=== PATIENT | male | born 1995 | race Caucasian/White ===

== ENCOUNTER 2018-03-28 15:28 | Emergency (ER) | payer BC ==
[~2018-03-28] VITALS: Ht 175.3 cm; Wt 60.2 kg
[2018-03-28 15:45] VITALS: BP 105/64
[2018-03-28 16:51] LABS: BASOPHILS % (AUTO) 0.1 % (0-1); EOSINOPHILS # (AUTO) 0.2 X10'3 (0-0.9); EOSINOPHILS % (AUTO) 4.6 % (0-6); HEMATOCRIT 39.8 % (42.0-52.0); HEMOGLOBIN 13.5 g/dl (14.0-17.9); LYMPHOCYTES # (AUTO) 0.3 X10'3 (1.1-4.8); LYMPHOCYTES % (AUTO) 5.9 % (21-51); MEAN CORPUSCULAR HEMOGLOBIN 30.2 PG (27.0-31.0); MEAN CORPUSCULAR HGB CONC 33.8 % (33.0-36.5); MEAN CORPUSCULAR VOLUME 89.3 FL (78-98); MEAN PLATELET VOLUME 8.1 FL (7.4-10.4); MONOCYTES # (AUTO) 0.3 X10'3 (0-0.9); MONOCYTES % (AUTO) 6.5 % (2-12); NEUTROPHILS # (AUTO) 3.8 X10'3 (1.8-7.7); NEUTROPHILS % (AUTO) 82.9 % (42-75); PLATELET COUNT 196 X10'3 (140-440); RED BLOOD COUNT 4.46 X10'6 (4.70-6.10); RED CELL DISTRIBUTION WIDTH 13.8 % (11.5-14.5); WHITE BLOOD COUNT 4.6 X10'3 (4.5-11.0)
[2018-03-28 17:13] LABS: ALANINE AMINOTRANSFERASE 26 U/L (12-78); ALBUMIN/GLOBULIN RATIO 1.6 (1.1-1.5); ALKALINE PHOSPHATASE 91 IU/L (46-116); ANION GAP 6 (8-16); ASPARTATE AMINO TRANSFERASE 17 U/L (10-37); BILIRUBIN,TOTAL 0.3 MG/DL (0.1-1.0); BLOOD UREA NITROGEN 13 MG/DL (7-18); CALCIUM 8.6 MG/DL (8.5-10.1); CHLORIDE 102 MMOL/L (99-107); CREATININE 0.93 MG/DL (0.60-1.10); GLUCOSE 84 MG/DL (70-104); POTASSIUM 3.7 MMOL/L (3.5-5.1); SODIUM 139 MMOL/L (135-145); TOTAL CARBON DIOXIDE 30.8 MMOL/L (24-32); TOTAL PROTEIN 6.5 G/DL (6.4-8.2); eGFR > 90 ML/MIN
[2018-03-28] MEDS ORDERED: PRED10TA PO (17:46)
[2018-03-28] MEDS ORDERED: CLIN300C85 PO (17:47)
== END 2018-03-28 18:05 | disposition home or self-care (01) ==
LOC: ER 15:29
DX: R21 Rash and other nonspecific skin eruption (principal); L02.01 Cutaneous abscess of face; R42 Dizziness and giddiness; Z86.14 Personal history of Methicillin resistant Staphylococcus aureus infection
CPT/HCPCS: 36415; 71045; 80053; 83605; 85025; 87040; 87081; 87880; 99285

== ENCOUNTER 2022-12-20 00:08 | Emergency (ER) | payer BC ==
[~2022-12-20] VITALS: Ht 177.8 cm; Wt 61.4 kg
[~2022-12-20 00:08] MED LIST: CLIN-97 PO; PRED10TA PO
[2022-12-20] MEDS ORDERED: orphenadrine citrate 60mg/2ml inj. IM ONE (04:40)
[2022-12-20] MEDS ORDERED: acetaminophen 325mg tablet PO ONE (04:40)
[2022-12-20] MEDS ORDERED: HYDROcodone/acetaminophen 10/325mg tab PO ONE (04:40)
[2022-12-20] MEDS ORDERED: ketorolac trometh inj. 60 MG/2 ML VIAL IM ONE (04:40)
[2022-12-20] MEDS ORDERED: CYCL-1 PO (04:46)
[2022-12-20] MEDS ORDERED: HYDR-3973 PO (04:46)
[2022-12-20 04:58] VITALS: BP 103/63; PULSE 98; RESP 16; TEMP 98.8; O2SAT 99
== END 2022-12-20 05:00 | disposition home or self-care (01) ==
LOC: ER 00:09
DX: M54.9 Dorsalgia, unspecified (principal); R19.7 Diarrhea, unspecified; Z86.14 Personal history of Methicillin resistant Staphylococcus aureus infection; Z88.0 Allergy status to penicillin; Z88.2 Allergy status to sulfonamides
CPT/HCPCS: 96372; 99284; J1885; J2360

== ENCOUNTER 2023-01-22 08:17 | Inpatient (IN) | payer BC ==
[~2023-01-22] VITALS: Ht 177.8 cm; Wt 65.0 kg
[2023-01-22] VITALS (9 sets, daily range): BP systolic 102–110; BP diastolic 54–65; PULSE 100–114; RESP 15–22; TEMP 99–103; O2SAT 96–98
[~2023-01-22 08:17] MED LIST changes: +CYCL-1 PO
[2023-01-22 09:19] LABS: LYMPHOCYTES # (AUTO) 0.1 X10'3 (1.1-4.8); MONOCYTES # (AUTO) 0.3 X10'3 (0-0.9); NEUTROPHILS # (AUTO) 0.7 X10'3 (1.8-7.7); WHITE BLOOD COUNT 1.1 X10'3 (4.5-11.0)
[2023-01-22 09:21] LABS: BASOPHILS % (AUTO) 0 % (0-1); EOSINOPHILS % (AUTO) 0.5 % (0-6); LYMPHOCYTES % (AUTO) 8.8 % (21-51); MEAN CORPUSCULAR HEMOGLOBIN 25.6 PG (27.0-31.0); MEAN CORPUSCULAR HGB CONC 32.1 g/dL (33.0-36.5); MEAN CORPUSCULAR VOLUME 79.9 FL (78-98); MEAN PLATELET VOLUME 8.3 FL (7.4-10.4); MONOCYTES % (AUTO) 30.2 % (2-12); NEUTROPHILS % (AUTO) 60.5 % (42-75); PLATELET COUNT 193 X10'3 (140-440); RED BLOOD COUNT 1.94 X10'6 (4.70-6.10); RED CELL DISTRIBUTION WIDTH 20.2 % (11.5-14.5)
[2023-01-22 09:25] LABS: HEMATOCRIT 15.5 % (42.0-52.0)
[2023-01-22 09:26] LABS: INR 1.3 INR
[2023-01-22 10:21] LABS: ALANINE AMINOTRANSFERASE 44 U/L (12-78); ALBUMIN/GLOBULIN RATIO 0.6 (1.1-1.5); ALKALINE PHOSPHATASE 376 IU/L (46-116); AMYLASE 19 U/L (25-115); ANION GAP 8 (8-16); ASPARTATE AMINO TRANSFERASE 23 U/L (10-37); BILIRUBIN,TOTAL 0.4 MG/DL (0.1-1.0); BLOOD UREA NITROGEN 9 MG/DL (7-18); BUN/CREATININE RATIO 13.2 (10.0-20.0); CALCIUM 9.1 MG/DL (8.5-10.1); CHLORIDE 101 MMOL/L (99-107); CREATININE 0.68 MG/DL (0.60-1.10); GLUCOSE 110 MG/DL (70-104); LIPASE < 50 U/L (73-393); POTASSIUM 3.9 MMOL/L (3.5-5.1); SODIUM 136 MMOL/L (135-145); TOTAL CARBON DIOXIDE 26.9 MMOL/L (24-32); TOTAL PROTEIN 5.2 G/DL (6.4-8.2); eCRCL 149 ML/MIN; eGFR > 90 ML/MIN
[2023-01-22 10:36] LABS: TOTAL CELLS COUNTED 100
[2023-01-22 10:41] LABS: ANISOCYTOSIS 3+; MICROCYTOSIS 1+; PLATELET ESTIMATE NORMAL; TEAR DROP CELLS 2+
[2023-01-22 10:54] LABS: ELLIPTOCYTES FEW; POLYCHROMASIA FEW
[2023-01-22 10:55] LABS: HYPOCHROMASIA 1+
[2023-01-22] MEDS ORDERED: magnesium hydroxide 30ml (MOM) UD suspension PO PRN (10:55)
[2023-01-22] MEDS ORDERED: acetaminophen 325mg tablet PO PRN ×2 (10:55→11:25)
[2023-01-22] MEDS ORDERED: ondansetron/PF 4mg/2ml inj IV PRN ×2 (10:55→11:25)
[2023-01-22] MEDS ORDERED: magnesium 2GM in 50ml NS 50 ML IV PRN ×2 (10:55→11:25)
[2023-01-22] MEDS ORDERED: mag hydrox/Alum hydrox/simeth 30ml oral suspension PO PRN (10:55)
[2023-01-22] MEDS ORDERED: HYDROmorphone/PF 0.2 MG/ML SYRINGE IV PRN (10:55)
[2023-01-22] MEDS ORDERED: potassium Cl 40MEQ/1/2NS 520ml 520 ML IV PRN ×2 (10:55→11:25)
[2023-01-22] MEDS: normal saline 1000ml 1,000 ML IV SCH ×4 (10:55→21:25)
[2023-01-22] MEDS ORDERED: magnesium 4gm in 100ml NS 100 ML IV PRN ×2 (10:55→11:25)
[2023-01-22] MEDS ORDERED: morphine 2 MG/ML inj. syringe IV PRN ×2 (10:55→11:25)
[2023-01-22] MEDS ORDERED: magnesium Cl slow-release 64mg tablet PO PRN ×2 (10:55→11:25)
[2023-01-22] MEDS ORDERED: potassium Cl 20 mEq SR tablet PO PRN ×4 (10:55→11:25)
[2023-01-22 11:17] LABS: BILIRUBIN,URINE NEGATIVE (Neg); CLARITY,URINE CLEAR (Clear); COLOR,URINE YELLOW (Yellow); GLUCOSE, URINE NEGATIVE (Neg); KETONES,URINE NEGATIVE (Neg); LEUKOCYTE ESTERASE ,URINE NEGATIVE (Neg); NITRITES, URINE NEGATIVE (Neg); OCCULT BLOOD,URINE NEGATIVE (Neg); PROTEIN,URINE NEGATIVE (Neg); UROBILINOGEN,URINE 0.2 E.U/dL (0.2-1.0)
[2023-01-22 11:20] LABS: UA COLLECTION TYPE CLN CATCH MIDSTREAM
[2023-01-22] MEDS ORDERED: HYDROcodone/acetaminophen 5mg/325mg tablet PO PRN (11:25)
--- NOTE | 2023-01-22 11:25 | NUR ---
dr. gómez at bedside, told her only 1 unit of blood ordered by dr. lobo. She said she would order another unit. She wanted a urine tox ordered.
[2023-01-22] MEDS ORDERED: NO HOME MEDS (12:05)
[2023-01-22 13:03] LABS: URINE AMPHETAMINE SCREEN NEGATIVE (Neg); URINE BARBITUATE SCREEN NEGATIVE (Neg); URINE BENZODIAZEPINES SCREEN NEGATIVE (Neg); URINE CANNABINOID SCREEN POSITIVE (Neg); URINE COCAINE SCREEN NEGATIVE (Neg); URINE METHADONE SCREEN NEGATIVE (Neg); URINE OPIATE SCREEN NEGATIVE (Neg); URINE PHENCYCLIDINE SCREEN NEGATIVE (Neg)
[2023-01-22 13:17] LABS: OCCULT BLOOD STOOL POSITIVE (Neg)
[2023-01-22] MEDS ORDERED: FERR325T29 PO (13:21)
[2023-01-22] MEDS ORDERED: ASCO500C12 PO (13:21)
[2023-01-22] MEDS ORDERED: CALC-855 PO (13:21)
--- NOTE | 2023-01-22 13:25 | NUR ---
Reported to Dr. Crawford pts temp 101.1 during blood transfusion. Pt is without any other transfusion reaction sxs and has been having fevers for quite a while now. Pt to receive prn tylenol PO dose now and to continue transfusion. Transfusion to be discontinued if pt developes rash, flank pain or associated sxs with transfusiona and to receive IV benadryl.
[2023-01-22 15:14] LABS: % IRON SATURATION 16 % (11-46); IRON 22 UG/DL (53-167); TOTAL IRON BINDING CAPACITY 139 UG/DL (259-388)
[2023-01-22] MEDS: acetaminophen 325mg tablet PO SCH (16:00)
[2023-01-22] MEDS: pantoprazole 40MG/NS 100ML BAG 100 ML IV SCH ×2 (17:15→21:16)
[2023-01-22 18:24] LABS: HIV ANTIBODY 1&2 RAPID NON-REACTIVE (Neg)
--- NOTE | 2023-01-22 19:34 | NUR ---
report given to floor nursr. pt tx to room 4021b by tech
--- NOTE | 2023-01-22 19:41 | NUR ---
Patient arrived from ER and transferred to hospital bed w/o problem
[2023-01-22] MEDS: K and/or MAG REPLACEMENT MC SCH (20:00)
[2023-01-22] MEDS: docusate sod 100mg capsule PO SCH (20:52)
[2023-01-23] VITALS (11 sets, daily range): BP systolic 90–118; BP diastolic 48–63; PULSE 94–106; RESP 14–18; TEMP 97.9–100.8; O2SAT 96–100
[2023-01-23] MEDS: pantoprazole 40MG/NS 100ML BAG 100 ML IV SCH ×5 (01:11→21:54)
[2023-01-23] MEDS: normal saline 1000ml 1,000 ML IV SCH ×5 (05:09→22:58)
--- NOTE | 2023-01-23 06:07 | NUR ---
Problems reprioritized. Patient report given, questions answered & plan of care reviewed with ILYA Luther.
--- NOTE | 2023-01-23 06:12 | NUR ---
Problems reprioritized. Patient report given, questions answered & plan of care reviewed with ILYA Luther.
[2023-01-23 06:41] LABS: HEMOGLOBIN 7.3 g/dl (14.0-17.9); WHITE BLOOD COUNT 1.4 X10'3 (4.5-11.0)
[2023-01-23 06:43] LABS: HEMATOCRIT 22.1 % (42.0-52.0); MEAN CORPUSCULAR HEMOGLOBIN 26.7 PG (27.0-31.0); MEAN CORPUSCULAR HGB CONC 32.9 g/dL (33.0-36.5); PLATELET COUNT 199 X10'3 (140-440); RED BLOOD COUNT 2.72 X10'6 (4.70-6.10); RED CELL DISTRIBUTION WIDTH 18.3 % (11.5-14.5)
[2023-01-23] MEDS: acetaminophen 325mg tablet PO SCH ×4 (07:47→23:40)
[2023-01-23] MEDS: docusate sod 100mg capsule PO SCH ×2 (07:47→20:00)
[2023-01-23] MEDS: K and/or MAG REPLACEMENT MC SCH ×2 (08:00→20:00)
[2023-01-23 08:13] LABS: ANISOCYTOSIS 2+; LARGE PLATELETS FEW; PLATELET ESTIMATE NORMAL; TOTAL CELLS COUNTED 100
[2023-01-23 08:14] LABS: ELLIPTOCYTES 1+; HYPOCHROMASIA 1+; POLYCHROMASIA FEW; TEAR DROP CELLS 2+
[2023-01-23 08:15] LABS: MICROCYTOSIS 1+
[2023-01-23 08:22] LABS: ALANINE AMINOTRANSFERASE 50 U/L (12-78); ALBUMIN 1.8 G/DL (3.4-5.0); ALBUMIN/GLOBULIN RATIO 0.6 (1.1-1.5); ALKALINE PHOSPHATASE 467 IU/L (46-116); ANION GAP 8 (8-16); ASPARTATE AMINO TRANSFERASE 26 U/L (10-37); BILIRUBIN,TOTAL 0.8 MG/DL (0.1-1.0); BLOOD UREA NITROGEN 12 MG/DL (7-18); BUN/CREATININE RATIO 17.1 (10.0-20.0); CALCIUM 9.1 MG/DL (8.5-10.1); CHLORIDE 103 MMOL/L (99-107); GLUCOSE 109 MG/DL (70-104); MAGNESIUM 1.7 MG/DL (1.5-2.4); POTASSIUM 3.9 MMOL/L (3.5-5.1); SODIUM 138 MMOL/L (135-145); TOTAL CARBON DIOXIDE 26.6 MMOL/L (24-32); eCRCL 144 ML/MIN; eGFR > 90 ML/MIN
[2023-01-23] MEDS ORDERED: MIDAZolam 1 MG/ML 5ML VIAL ONE (13:48)
[2023-01-23] MEDS ORDERED: fentaNYL/PF 50MCG/1 ML 2ML syringe ONE (13:48)
[2023-01-23] MEDS ORDERED: LIDOcaine Viscous 15ml cup ONE (13:48)
[2023-01-23] MEDS ORDERED: PEG 3350/Na sulf,bicarb,Cl/KCl oral sol 4 liter bottle PO ONE (14:55)
[2023-01-23] MEDS ORDERED: iohexol 300mg/ml 100ml inj. ONE (15:48)
--- NOTE | 2023-01-23 18:00 | NUR ---
I have reviewed and agree with interventions, assessments, and documentation by Homa Aleman LVN.
--- NOTE | 2023-01-23 20:00 | NUR ---
Agree with Physical assessment done by Frank salinas Lvn.
--- NOTE | 2023-01-23 23:39 | NUR ---
Student documentation: I have reviewed and agree with all interventions, assessments performed and documented by Frank Mendez [facility].
[2023-01-24] VITALS (19 sets, daily range): BP systolic 100–124; BP diastolic 51–72; PULSE 93–113; RESP 14–18; TEMP 97.9–100.3; O2SAT 95–100
[2023-01-24] MEDS: pantoprazole 40MG/NS 100ML BAG 100 ML IV SCH ×5 (02:33→21:07)
[2023-01-24] MEDS: normal saline 1000ml 1,000 ML IV SCH ×5 (03:25→23:25)
--- NOTE | 2023-01-24 06:24 | NUR ---
Problems reprioritized. Patient report given, questions answered & plan of care reviewed with Homa DEL TORO.
[2023-01-24 07:06] LABS: BASOPHILS % (AUTO) 0.2 % (0-1); HEMATOCRIT 22.1 % (42.0-52.0); LYMPHOCYTES # (AUTO) 0.1 X10'3 (1.1-4.8); MEAN CORPUSCULAR HEMOGLOBIN 26.4 PG (27.0-31.0); MEAN PLATELET VOLUME 7.8 FL (7.4-10.4); PLATELET COUNT 206 X10'3 (140-440); WHITE BLOOD COUNT 1.3 X10'3 (4.5-11.0)
[2023-01-24 07:07] LABS: EOSINOPHILS % (AUTO) 0.2 % (0-6); HEMOGLOBIN 7.1 g/dl (14.0-17.9); LYMPHOCYTES % (AUTO) 4.1 % (21-51); MEAN CORPUSCULAR HGB CONC 32.3 g/dL (33.0-36.5); MEAN CORPUSCULAR VOLUME 81.9 FL (78-98); MONOCYTES # (AUTO) 0.4 X10'3 (0-0.9); MONOCYTES % (AUTO) 29.2 % (2-12); NEUTROPHILS # (AUTO) 0.8 X10'3 (1.8-7.7); NEUTROPHILS % (AUTO) 66.3 % (42-75); RED CELL DISTRIBUTION WIDTH 18.5 % (11.5-14.5)
[2023-01-24 07:19] LABS: ALANINE AMINOTRANSFERASE 33 U/L (12-78); ALBUMIN 1.8 G/DL (3.4-5.0); ALBUMIN/GLOBULIN RATIO 0.6 (1.1-1.5); ALKALINE PHOSPHATASE 386 IU/L (46-116); ANION GAP 9 (8-16); ASPARTATE AMINO TRANSFERASE 17 U/L (10-37); BILIRUBIN,TOTAL 0.6 MG/DL (0.1-1.0); BLOOD UREA NITROGEN 9 MG/DL (7-18); CALCIUM 8.9 MG/DL (8.5-10.1); CHLORIDE 102 MMOL/L (99-107); CREATININE 0.69 MG/DL (0.60-1.10); GLUCOSE 101 MG/DL (70-104); MAGNESIUM 1.6 MG/DL (1.5-2.4); POTASSIUM 3.6 MMOL/L (3.5-5.1); SODIUM 136 MMOL/L (135-145); TOTAL CARBON DIOXIDE 25.3 MMOL/L (24-32); TOTAL PROTEIN 4.9 G/DL (6.4-8.2); eCRCL 147 ML/MIN; eGFR > 90 ML/MIN
[2023-01-24] MEDS: K and/or MAG REPLACEMENT MC SCH ×2 (07:38→20:00)
[2023-01-24] MEDS: acetaminophen 325mg tablet PO SCH ×3 (07:39→23:53)
[2023-01-24] MEDS: docusate sod 100mg capsule PO SCH ×3 (07:39→20:39)
[2023-01-24] MEDS: ferrous sulfate 325mg tablet PO SCH (07:39)
[2023-01-24 08:31] LABS: LACTATE DEHYDROGENASE 186 U/L (85-227)
[2023-01-24 10:23] LABS: ANISOCYTOSIS 2+; MICROCYTOSIS FEW; PLATELET ESTIMATE NORMAL; TOTAL CELLS COUNTED 100
[2023-01-24 10:24] LABS: ELLIPTOCYTES 1+; HYPOCHROMASIA 1+; LARGE PLATELETS FEW; POLYCHROMASIA FEW; ROULEAUX 1+; TEAR DROP CELLS 2+
[2023-01-24 11:38] LABS: RED BLOOD COUNT 2.71 X10'6 (4.70-6.10); RETICULOCYTE % (AUTO) 3.1 % (0.5-1.5)
[2023-01-24 12:51] LABS: EBV AB VCA, IGG >600.0 U/mL (0.0-17.9); EBV AB VCA, IGM <36.0 U/mL (0.0-35.9); EBV NUCLEAR ANTIGEN AB, IGG <18.0 U/mL (0.0-17.9)
[2023-01-24] MEDS ORDERED: fentaNYL/PF 50MCG/1 ML 2ML syringe ONE (15:53)
[2023-01-24] MEDS ORDERED: MIDAZolam 1 MG/ML 5ML VIAL ONE (15:53)
--- NOTE | 2023-01-24 18:00 | NUR ---
I have reviewed and agree with interventions, assessments, and documentation by Homa Aleman LVN.
--- NOTE | 2023-01-24 18:02 | NUR ---
Verbal permission to give patients father updates if he calls. Alec Doherty [phone]. Adding to SBAR.
--- NOTE | 2023-01-24 23:33 | NUR ---
Charting by Merry SEAMAN reviewed by Thania Martin RN
[2023-01-25] VITALS (8 sets, daily range): BP systolic 107–128; BP diastolic 60–71; PULSE 106–114; RESP 16–18; TEMP 97.5–99.5; O2SAT 96–100
[2023-01-25] MEDS: pantoprazole 40MG/NS 100ML BAG 100 ML IV SCH ×3 (01:50→10:46)
--- NOTE | 2023-01-25 05:52 | NUR ---
I have reviewed and agree with all assessment performed unless otherwise noted in my assessment, documented by Osmel Trinidad, Addendum: 01/25/23 at 0658 by Pura Sevilla RN I have reviewed and agreed with Osmel TRINIDAD's assessment apart from my findings on my own assessment.
--- NOTE | 2023-01-25 06:31 | NUR ---
Problems reprioritized. Patient report given, questions answered & plan of care reviewed with Conrado DEL TORO.
--- NOTE | 2023-01-25 06:45 | NUR ---
Patient in room ORTHO 4021. I have received report from ALVERTO Bolivar and had the opportunity to ask questions and assume patient care.
[2023-01-25] MEDS: normal saline 1000ml 1,000 ML IV SCH ×4 (06:51→19:44)
--- NOTE | 2023-01-25 07:17 | NUR ---
Patient in room ORTHO 4021. I have received report from Osmel DEL TORO and had the opportunity to ask questions and assume patient care.
[2023-01-25 07:34] LABS: BASOPHILS % (AUTO) 0.1 % (0-1); EOSINOPHILS % (AUTO) 0.2 % (0-6); HEMOGLOBIN 7.4 g/dl (14.0-17.9); LYMPHOCYTES # (AUTO) 0.1 X10'3 (1.1-4.8); LYMPHOCYTES % (AUTO) 8.9 % (21-51); MEAN CORPUSCULAR HEMOGLOBIN 26.5 PG (27.0-31.0); MEAN CORPUSCULAR HGB CONC 32.3 g/dL (33.0-36.5); MEAN PLATELET VOLUME 7.9 FL (7.4-10.4); MONOCYTES # (AUTO) 0.3 X10'3 (0-0.9); NEUTROPHILS # (AUTO) 0.8 X10'3 (1.8-7.7); NEUTROPHILS % (AUTO) 65.8 % (42-75); PLATELET COUNT 231 X10'3 (140-440); RED CELL DISTRIBUTION WIDTH 18.9 % (11.5-14.5); WHITE BLOOD COUNT 1.3 X10'3 (4.5-11.0)
[2023-01-25 07:52] LABS: ALANINE AMINOTRANSFERASE 30 U/L (12-78); ALBUMIN 1.8 G/DL (3.4-5.0); ALBUMIN/GLOBULIN RATIO 0.6 (1.1-1.5); ALKALINE PHOSPHATASE 361 IU/L (46-116); ANION GAP 7 (8-16); ASPARTATE AMINO TRANSFERASE 17 U/L (10-37); BILIRUBIN,TOTAL 0.5 MG/DL (0.1-1.0); BLOOD UREA NITROGEN 9 MG/DL (7-18); BUN/CREATININE RATIO 12.2 (10.0-20.0); CALCIUM 8.9 MG/DL (8.5-10.1); CHLORIDE 102 MMOL/L (99-107); CREATININE 0.74 MG/DL (0.60-1.10); GLUCOSE 130 MG/DL (70-104); MAGNESIUM 1.6 MG/DL (1.5-2.4); POTASSIUM 3.8 MMOL/L (3.5-5.1); SODIUM 137 MMOL/L (135-145); TOTAL CARBON DIOXIDE 28.3 MMOL/L (24-32); TOTAL PROTEIN 4.9 G/DL (6.4-8.2); eCRCL 137 ML/MIN; eGFR > 90 ML/MIN
[2023-01-25] MEDS: K and/or MAG REPLACEMENT MC SCH ×2 (08:00→20:00)
[2023-01-25] MEDS: docusate sod 100mg capsule PO SCH ×2 (08:08→19:49)
[2023-01-25] MEDS: ferrous sulfate 325mg tablet PO SCH (08:09)
[2023-01-25] MEDS: acetaminophen 325mg tablet PO SCH ×2 (08:11→16:19)
[2023-01-25 08:14] LABS: PLATELET ESTIMATE NORMAL; TOTAL CELLS COUNTED 100
[2023-01-25 08:15] LABS: ANISOCYTOSIS 2+; ELLIPTOCYTES FEW; TEAR DROP CELLS 2+
--- NOTE | 2023-01-25 10:43 | NUR ---
Pt has a temp of 101. Contacted resident and told him pt would like tylenol for temp but only wants to take 325mg. Resident stated that was okay.
[2023-01-25] MEDS ORDERED: acetaminophen 325mg tablet PO ONE (11:00)
--- NOTE | 2023-01-25 16:00 | NUR ---
[employer]GER documentation: I have reviewed and agree with all interventions, assessments performed and documented by Conrado Topete LVN.
--- NOTE | 2023-01-25 17:41 | NUR ---
Student documentation: I have reviewed and agree with all interventions, assessments performed and documented by KWADWO DEL TORO.
--- NOTE | 2023-01-25 18:18 | NUR ---
Problems reprioritized. Patient report given, questions answered & plan of care reviewed with ILYA Wynn.
[2023-01-25] MEDS: pantoprazole 40mg Tablet.DR PO SCH (19:50)
[2023-01-26] VITALS (23 sets, daily range): BP systolic 101–120; BP diastolic 60–78; PULSE 83–116; RESP 14–20; TEMP 97.5–101.7; O2SAT 96–100
[2023-01-26] MEDS: acetaminophen 325mg tablet PO SCH ×4 (00:41→16:00)
[2023-01-26] MEDS: normal saline 1000ml 1,000 ML IV SCH ×4 (05:14→16:06)
[2023-01-26 06:15] LABS: BASOPHILS % (AUTO) 0.2 % (0-1); EOSINOPHILS % (AUTO) 0.3 % (0-6); HEMOGLOBIN 7.1 g/dl (14.0-17.9); LYMPHOCYTES # (AUTO) 0.1 X10'3 (1.1-4.8); LYMPHOCYTES % (AUTO) 7.5 % (21-51); MEAN CORPUSCULAR HEMOGLOBIN 26.9 PG (27.0-31.0); MEAN CORPUSCULAR HGB CONC 32.8 g/dL (33.0-36.5); MEAN CORPUSCULAR VOLUME 81.9 FL (78-98); MEAN PLATELET VOLUME 7.8 FL (7.4-10.4); MONOCYTES # (AUTO) 0.3 X10'3 (0-0.9); MONOCYTES % (AUTO) 26.9 % (2-12); NEUTROPHILS # (AUTO) 0.7 X10'3 (1.8-7.7); NEUTROPHILS % (AUTO) 65.1 % (42-75); PLATELET COUNT 189 X10'3 (140-440); RED BLOOD COUNT 2.64 X10'6 (4.70-6.10); RED CELL DISTRIBUTION WIDTH 18.7 % (11.5-14.5)
[2023-01-26 06:18] LABS: HEMATOCRIT 21.7 % (42.0-52.0)
--- NOTE | 2023-01-26 06:25 | NUR ---
CALLED DR. CALVILLO AND WAS INFORMED OF CRITICAL WBC 1.0 HGB 7.1 HCT 21.7 AND DID NOT ORDER ANYTHING BUT SAID THANK YOU.
[2023-01-26 06:29] LABS: ALANINE AMINOTRANSFERASE 30 U/L (12-78); ALBUMIN 1.7 G/DL (3.4-5.0); ALBUMIN/GLOBULIN RATIO 0.6 (1.1-1.5); ALKALINE PHOSPHATASE 397 IU/L (46-116); ANION GAP 7 (8-16); ASPARTATE AMINO TRANSFERASE 18 U/L (10-37); BILIRUBIN,TOTAL 0.5 MG/DL (0.1-1.0); BLOOD UREA NITROGEN 8 MG/DL (7-18); BUN/CREATININE RATIO 11.8 (10.0-20.0); CALCIUM 8.5 MG/DL (8.5-10.1); CHLORIDE 103 MMOL/L (99-107); CREATININE 0.68 MG/DL (0.60-1.10); GLUCOSE 119 MG/DL (70-104); MAGNESIUM 1.6 MG/DL (1.5-2.4); POTASSIUM 3.4 MMOL/L (3.5-5.1); SODIUM 137 MMOL/L (135-145); TOTAL CARBON DIOXIDE 27.3 MMOL/L (24-32); TOTAL PROTEIN 4.7 G/DL (6.4-8.2); eCRCL 149 ML/MIN; eGFR > 90 ML/MIN
--- NOTE | 2023-01-26 06:30 | NUR ---
CALLED OR NURSE AND WAS INFORMED OF CRITICAL LABS AND DR. CALVILLO WAS INFORMED BUT DID NOT GIVE ANY ORDER SAID THAT SHE WILL TELL ANESTHESILOGIST ABOUT CRITICAL LABS.
--- NOTE | 2023-01-26 06:45 | NUR ---
Problems reprioritized. Patient report given, questions answered & plan of care reviewed with PEÑA CARABALLO.
--- NOTE | 2023-01-26 06:53 | NUR ---
Patient in room ORTHO 4021. I have received report from Kingsley and had the opportunity to ask questions and assume patient care.
[2023-01-26 07:14] LABS: ANISOCYTOSIS 2+; PLATELET ESTIMATE NORMAL; TOTAL CELLS COUNTED 100
[2023-01-26 07:15] LABS: ELLIPTOCYTES 1+; POLYCHROMASIA 1+; TEAR DROP CELLS 2+
[2023-01-26] MEDS: docusate sod 100mg capsule PO SCH ×2 (08:00→21:31)
[2023-01-26] MEDS: ferrous sulfate 325mg tablet PO SCH (08:00)
[2023-01-26] MEDS: K and/or MAG REPLACEMENT MC SCH ×2 (08:00→20:00)
[2023-01-26] MEDS: pantoprazole 40mg Tablet.DR PO SCH ×2 (09:56→21:31)
[2023-01-26] MEDS ORDERED: fentaNYL /PF 50mcg/ml 5ml ampule ONE (11:59)
[2023-01-26] MEDS ORDERED: sevoflurane 250ml liquid IH ONE (12:02)
[2023-01-26] MEDS ORDERED: vancomycin/NS 1 GM ADD-VANTAGE 250 ML IV ONE (12:05)
[2023-01-26] MEDS ORDERED: BUPIVAcaine/PF 2.5mg/ml (0.25%) 10ml vial ONE ×2 (13:51→13:53)
[2023-01-26] MEDS ORDERED: BUPIVACAINE liposomal/PF 13.3 MG/ML vial IM ONE (13:51)
[2023-01-26] MEDS ORDERED: rocuronium 10mg/ml inj IV ONE ×2 (14:00)
[2023-01-26] MEDS ORDERED: ceFAZolin 1000mg inj ONE ×3 (14:00)
[2023-01-26] MEDS ORDERED: propofol inj 20 ML IV ONE (14:00)
[2023-01-26] MEDS ORDERED: ondansetron/PF 4mg/2ml inj ONE (14:00)
[2023-01-26] MEDS ORDERED: LIDOcaine 2% (20mg/ml) 5ml vial ONE (14:00)
[2023-01-26] MEDS ORDERED: dexamethasone sod phosphate 4mg/ml inj. ONE (14:00)
[2023-01-26] MEDS ORDERED: MIDAZolam 1 MG/ML 5ML VIAL ONE (14:00)
[2023-01-26] MEDS ORDERED: 0.9 % SODIUM CHLORIDE 10 ML VIAL ONE (14:00)
[2023-01-26] MEDS ORDERED: LIDOcaine 1% (10mg/ml) 2ml vial ONE (14:19)
[2023-01-26] MEDS ORDERED: sugammadex 200mg/2ml injection IV ONE (14:22)
[2023-01-26] MEDS ORDERED: morphine 4 MG/ML inj SYRINge IV PRN ×2 (14:30→14:40)
[2023-01-26] MEDS ORDERED: ondansetron/PF 4mg/2ml inj IV PRN ×2 (14:30→14:40)
[2023-01-26] MEDS ORDERED: meperidine/PF 25mg/ml syringe IV PRN ×3 (14:30)
[2023-01-26] MEDS ORDERED: morphine 2 MG/ML inj. syringe IV PRN ×2 (14:30→14:40)
[2023-01-26] MEDS ORDERED: proCHLORperazine 10 MG/2 ml inj IV PRN (14:30)
[2023-01-26] MEDS ORDERED: acetaminophen 1,000mg/100ml IV 100 ML IV PRN (14:30)
[2023-01-26] MEDS ORDERED: hydrALAZINE 20mg/ml inj. IV PRN (14:30)
[2023-01-26] MEDS ORDERED: labetalol 20mg/4ml (5mg/ml) syringe IV PRN (14:30)
[2023-01-26] MEDS ORDERED: ringers solution, lacted 1,000 ML IV SCH (14:30)
[2023-01-26] MEDS ORDERED: metoclopramide 5 mg/ml inj IV PRN (14:40)
[2023-01-26] MEDS ORDERED: HYDROcodone/acetaminophen 10/325mg tab PO PRN (14:40)
[2023-01-26] MEDS ORDERED: albuterol 2.5 MG/3 ML nebule NEB PRN (14:40)
--- NOTE | 2023-01-26 14:40 | NUR ---
Received from OR via gurney, accompanied by Anesthesiologist and report given by Anesthesiologist. PATIENT WAKING UP, NO S/S OF PAIN, V/S WNL, 20G TO LUE, ART LINE RUE, 3 BANDAIDS TO RIGHT SIDE WITH CHEST TUBE WELL CDI. CHEST TUBE TO LOW WALL CONTINOUS SUCTION ATRIUM 20CM SUCTION
[2023-01-26] MEDS ORDERED: acetaminophen 1,000mg/100ml IV 100 ML IV ONE (14:45)
[2023-01-26] MEDS ORDERED: magnesium 4gm in 100ml NS 100 ML IV PRN ×3 (14:50)
[2023-01-26] MEDS ORDERED: magnesium 2GM in 50ml NS 50 ML IV PRN (14:50)
[2023-01-26] MEDS ORDERED: potassium Cl 40MEQ/1/2NS 520ml 520 ML IV PRN ×3 (14:50)
[2023-01-26] MEDS ORDERED: magnesium Cl slow-release 64mg tablet PO PRN ×3 (14:50)
[2023-01-26] MEDS ORDERED: potassium Cl 20 mEq SR tablet PO PRN ×5 (14:50)
--- NOTE | 2023-01-26 15:25 | NUR ---
PATIENT A&OX4, DENIES PAIN, V/S WNL, 20G TO LUE, ART LINE RUE D/C , 3 BANDAIDS TO RIGHT SIDE WITH CHEST TUBE WELL CDI. CHEST TUBE TO LOW WALL CONTINOUS SUCTION ATRIUM 20CM SUCTION. PATIENT TAKEN TO ORTHO WITH ALL BELONGINGS AND HOOKED UP TO MONITORS AND SUCTION AND REPORT GIVEN TO PEÑA CARABALLO WHO HAS TAKEN OVER PATIENT CARE.
--- NOTE | 2023-01-26 15:41 | NUR ---
patient arrived back to the floor, tucked in, post-op vitals established
--- NOTE | 2023-01-26 16:00 | NUR ---
Blood ordered this morning. Per blood bank, blood was ready at approx. 11:15. At this time OR called and spoke with this news writer stating blood would be given to patient in the OR as patient would be going to the OR very soon. Hung blood tubing, primed tubing, and OR staff came to transport patient to OR. Patient was picked up at approximately 11:30. Patient returned to the floor at 15:40. Reviewed chart, called blood bank, blood was not given. Hemogram ordered. Will follow with hospitalist. Addendum: 01/26/23 at 1823 by Sandy Haro RN Blood was picked up from blood bank by OR staff while patient was in OR but not given and then returned to blood bank, per blood bank staff. paged hospitalist regarding new H&H, no response.
[2023-01-26] MEDS: potassium Cl 20 mEq SR tablet PO PRN (16:07)
[2023-01-26] MEDS: gabapentin 400mg capsule PO SCH (16:07)
[2023-01-26] MEDS: HYDROcodone/acetaminophen 10/325mg tab PO PRN (16:08)
[2023-01-26 17:33] LABS: MEAN CORPUSCULAR HEMOGLOBIN 26.5 PG (27.0-31.0); MEAN CORPUSCULAR HGB CONC 32.2 g/dL (33.0-36.5); MEAN CORPUSCULAR VOLUME 82.5 FL (78-98); MEAN PLATELET VOLUME 7.8 FL (7.4-10.4); PLATELET COUNT 190 X10'3 (140-440); RED CELL DISTRIBUTION WIDTH 19.5 % (11.5-14.5); WHITE BLOOD COUNT 1.2 X10'3 (4.5-11.0)
[2023-01-26 17:36] LABS: HEMATOCRIT 21.5 % (42.0-52.0); HEMOGLOBIN 6.9 g/dl (14.0-17.9)
--- NOTE | 2023-01-26 17:36 | NUR ---
New labs - critical result H&H 6.9, 21.5
--- NOTE | 2023-01-26 17:38 | NUR ---
RE: Chas, 4021B, H&H 6.9 and 21.5
--- NOTE | 2023-01-26 18:19 | NUR ---
Problems reprioritized. Patient report given, questions answered & plan of care reviewed with Kingsley.
--- NOTE | 2023-01-26 18:30 | NUR ---
Patient in room ORTHO 4021. I have received report from PEÑA CARABALLO and had the opportunity to ask questions and assume patient care.
[2023-01-26] MEDS ORDERED: K and/or MAG REPLACEMENT MC SCH (20:00)
[2023-01-26] MEDS: ketorolac trometh. 30mg/ml inj. IV SCH (21:26)
[2023-01-26] MEDS: gabapentin 300mg capsule PO SCH (21:30)
[2023-01-27] VITALS (9 sets, daily range): BP systolic 105–116; BP diastolic 58–69; PULSE 84–94; RESP 16–18; TEMP 97.3–99.4; O2SAT 98–100
[2023-01-27] MEDS: normal saline 1000ml 1,000 ML IV SCH ×4 (00:55→11:25)
[2023-01-27] MEDS: gabapentin 400mg capsule PO SCH ×3 (01:38→16:57)
[2023-01-27] MEDS: potassium Cl 20 mEq SR tablet PO PRN (01:38)
[2023-01-27] MEDS: ketorolac trometh. 30mg/ml inj. IV SCH ×4 (03:19→20:21)
[2023-01-27 06:28] LABS: ALANINE AMINOTRANSFERASE 26 U/L (12-78); ALBUMIN 1.7 G/DL (3.4-5.0); ALBUMIN/GLOBULIN RATIO 0.5 (1.1-1.5); ALKALINE PHOSPHATASE 302 IU/L (46-116); ANION GAP 8 (8-16); ASPARTATE AMINO TRANSFERASE 12 U/L (10-37); BILIRUBIN,TOTAL 0.5 MG/DL (0.1-1.0); BLOOD UREA NITROGEN 12 MG/DL (7-18); BUN/CREATININE RATIO 22.2 (10.0-20.0); CALCIUM 8.9 MG/DL (8.5-10.1); CHLORIDE 105 MMOL/L (99-107); CREATININE 0.54 MG/DL (0.60-1.10); GLUCOSE 201 MG/DL (70-104); POTASSIUM 4.4 MMOL/L (3.5-5.1); SODIUM 140 MMOL/L (135-145); TOTAL CARBON DIOXIDE 27.5 MMOL/L (24-32); TOTAL PROTEIN 4.9 G/DL (6.4-8.2); eCRCL 187 ML/MIN; eGFR > 90 ML/MIN
[2023-01-27 06:32] LABS: BASOPHILS % (AUTO) 0 % (0-1); EOSINOPHILS % (AUTO) 0.1 % (0-6); HEMATOCRIT 26.5 % (42.0-52.0); HEMOGLOBIN 8.7 g/dl (14.0-17.9); LYMPHOCYTES % (AUTO) 2.4 % (21-51); MEAN CORPUSCULAR HEMOGLOBIN 27.1 PG (27.0-31.0); MEAN CORPUSCULAR HGB CONC 32.8 g/dL (33.0-36.5); MEAN CORPUSCULAR VOLUME 82.5 FL (78-98); MEAN PLATELET VOLUME 7.9 FL (7.4-10.4); MONOCYTES # (AUTO) 0.3 X10'3 (0-0.9); MONOCYTES % (AUTO) 17.3 % (2-12); NEUTROPHILS # (AUTO) 1.2 X10'3 (1.8-7.7); NEUTROPHILS % (AUTO) 80.2 % (42-75); PLATELET COUNT 194 X10'3 (140-440); RED BLOOD COUNT 3.21 X10'6 (4.70-6.10); RED CELL DISTRIBUTION WIDTH 18.6 % (11.5-14.5); WHITE BLOOD COUNT 1.5 X10'3 (4.5-11.0)
--- NOTE | 2023-01-27 06:44 | NUR ---
Problems reprioritized. Patient report given, questions answered & plan of care reviewed with ELIZABETH CARABALLO.
--- NOTE | 2023-01-27 06:53 | NUR ---
Patient in room ORTHO 4021. I have received report from MARGIE HANSON RN and had the opportunity to ask questions and assume patient care.
[2023-01-27 07:01] LABS: ANISOCYTOSIS 2+; ELLIPTOCYTES FEW; MICROCYTOSIS 1+; PLATELET ESTIMATE NORMAL; TEAR DROP CELLS FEW; TOTAL CELLS COUNTED 100
[2023-01-27] MEDS: K and/or MAG REPLACEMENT MC SCH ×2 (08:00→20:00)
[2023-01-27] MEDS: acetaminophen 325mg tablet PO SCH ×3 (08:11→16:00)
[2023-01-27] MEDS: pantoprazole 40mg Tablet.DR PO SCH ×2 (08:11→20:21)
[2023-01-27] MEDS: docusate sod 100mg capsule PO SCH ×2 (08:12→20:21)
[2023-01-27] MEDS: ferrous sulfate 325mg tablet PO SCH (08:12)
[2023-01-27] MEDS: gabapentin 300mg capsule PO SCH ×2 (08:12→20:21)
--- NOTE | 2023-01-27 10:43 | NUR ---
PAGER ID: [phone] MESSAGE: ILYA JOHNSON, ORTHO. [id number]. RE: [id number]. PT. IS REFUSING FILGRASTIM AND SAID WANTS TO GO HOME NOW. JAVIER
[2023-01-27] MEDS: TBO-filgrastim 300 MCG/0.5 ML inj. SQ ONE ×2 (10:44→11:53)
--- NOTE | 2023-01-27 11:20 | NUR ---
Initial: Pt admit for anemia and leukopenia. Pt s/p CT abdomen and pelvis which showed hepatosplenomegaly; multiple hypodense liver lesions per physician progress note. 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 Pt has been NPO versus clear liquid diet versus regular diet throughout LOS. While on a diet pt eats well, documented with 100% PO intake of meals, though it's difficult to assess if estimated nutrient needs have been met during admit d/t intermittent NPO versus clear liquid diet. Pt on a regular diet at this time and will meet estimated nutrient needs it he continues with 100% PO intake (minimum average 75% PO intake of meals required to meet 100% estimated nutrient needs). LBM 01/24 per EMR. Pt receiving routine Colace BID and received first PRN MoM 01/25. No nutrition intervention implemented at this time. Will continue to follow and make recommendations as appropriate. Recommendations: 1) Continue regular diet 2) Routine bowel care 3) Scaled weight this admit; subsequent weekly scaled weights Addendum: 01/27/23 at [address] Amended: Links added.
[2023-01-27] MEDS: HYDROcodone/acetaminophen 10/325mg tab PO PRN (14:33)
[2023-01-27 17:03] LABS: LYMPHOCYTES # (AUTO) 0.1 X10'3 (1.1-4.8); LYMPHOCYTES % (AUTO) 4.9 % (21-51); MONOCYTES # (AUTO) 0.3 X10'3 (0-0.9); NEUTROPHILS # (AUTO) 1.7 X10'3 (1.8-7.7); WHITE BLOOD COUNT 2.2 X10'3 (4.5-11.0)
[2023-01-27 17:04] LABS: BASOPHILS % (AUTO) 0.1 % (0-1); EOSINOPHILS % (AUTO) 0.1 % (0-6); HEMATOCRIT 24.3 % (42.0-52.0); MEAN CORPUSCULAR HEMOGLOBIN 26.9 PG (27.0-31.0); MEAN CORPUSCULAR HGB CONC 32.8 g/dL (33.0-36.5); MEAN CORPUSCULAR VOLUME 81.9 FL (78-98); MEAN PLATELET VOLUME 7.6 FL (7.4-10.4); MONOCYTES % (AUTO) 15.4 % (2-12); NEUTROPHILS % (AUTO) 79.5 % (42-75); PLATELET COUNT 195 X10'3 (140-440); RED BLOOD COUNT 2.97 X10'6 (4.70-6.10); RED CELL DISTRIBUTION WIDTH 18.5 % (11.5-14.5)
--- NOTE | 2023-01-27 18:15 | NUR ---
Patient in room ORTHO 4021. I have received report from ILYA Castorena and had the opportunity to ask questions and assume patient care.
--- NOTE | 2023-01-27 18:39 | NUR ---
Problems reprioritized. Patient report given to madhu sorensen, questions answered & plan of care reviewed with .
[2023-01-27] MEDS ORDERED: bisacodyl 10mg suppository rectal RC PRN (20:15)
[2023-01-28] VITALS (7 sets, daily range): BP systolic 113–126; BP diastolic 69–104; PULSE 96–112; RESP 16–17; TEMP 97.9–99.1; O2SAT 97–99
[2023-01-28] MEDS: gabapentin 400mg capsule PO SCH ×4 (00:14→23:52)
[2023-01-28] MEDS: ketorolac trometh. 30mg/ml inj. IV SCH ×4 (01:57→20:35)
--- NOTE | 2023-01-28 06:17 | NUR ---
Problems reprioritized. Patient report given, questions answered & plan of care reviewed with ILYA Diaz.
[2023-01-28 06:33] LABS: BASOPHILS % (AUTO) 0.3 % (0-1); HEMATOCRIT 23.1 % (42.0-52.0); HEMOGLOBIN 7.5 g/dl (14.0-17.9); LYMPHOCYTES # (AUTO) 0.2 X10'3 (1.1-4.8); MONOCYTES # (AUTO) 0.3 X10'3 (0-0.9); MONOCYTES % (AUTO) 15.9 % (2-12); NEUTROPHILS # (AUTO) 1.5 X10'3 (1.8-7.7)
[2023-01-28 06:35] LABS: EOSINOPHILS % (AUTO) 0.7 % (0-6); LYMPHOCYTES % (AUTO) 10.5 % (21-51); MEAN CORPUSCULAR HGB CONC 32.5 g/dL (33.0-36.5); MEAN CORPUSCULAR VOLUME 83.1 FL (78-98); MEAN PLATELET VOLUME 7.7 FL (7.4-10.4); NEUTROPHILS % (AUTO) 72.6 % (42-75); PLATELET COUNT 177 X10'3 (140-440); RED BLOOD COUNT 2.78 X10'6 (4.70-6.10); RED CELL DISTRIBUTION WIDTH 18.4 % (11.5-14.5); WHITE BLOOD COUNT 2.1 X10'3 (4.5-11.0)
[2023-01-28 07:25] LABS: ANISOCYTOSIS 2+; ELLIPTOCYTES FEW; PLATELET ESTIMATE NORMAL; TEAR DROP CELLS 1+; TOTAL CELLS COUNTED 100
[2023-01-28] MEDS: pantoprazole 40mg Tablet.DR PO SCH ×2 (07:44→20:36)
[2023-01-28] MEDS: ferrous sulfate 325mg tablet PO SCH (07:44)
[2023-01-28] MEDS: docusate sod 100mg capsule PO SCH ×2 (07:45→20:35)
[2023-01-28] MEDS: acetaminophen 325mg tablet PO SCH ×4 (08:00→23:55)
[2023-01-28] MEDS: K and/or MAG REPLACEMENT MC SCH ×2 (08:00→20:00)
[2023-01-28] MEDS: gabapentin 300mg capsule PO SCH (08:00)
[2023-01-28] MEDS ORDERED: TBO-filgrastim 300 MCG/0.5 ML inj. SQ ONE (11:20)
[2023-01-29] MEDS: ketorolac trometh. 30mg/ml inj. IV SCH ×2 (02:19→08:00)
[2023-01-29 06:00] VITALS: BP 110/57; PULSE 94; RESP 16; TEMP 97.9; O2SAT 100
--- NOTE | 2023-01-29 06:09 | NUR ---
Problems reprioritized. Patient report given, questions answered & plan of care reviewed with ALVERTO ADAMS.
[2023-01-29] MEDS: K and/or MAG REPLACEMENT MC SCH (07:18)
[2023-01-29] MEDS: ferrous sulfate 325mg tablet PO SCH (07:28)
[2023-01-29] MEDS: docusate sod 100mg capsule PO SCH (07:28)
[2023-01-29] MEDS: pantoprazole 40mg Tablet.DR PO SCH (07:28)
[2023-01-29] MEDS: gabapentin 400mg capsule PO SCH (07:28)
[2023-01-29] MEDS: acetaminophen 325mg tablet PO SCH (07:31)
[2023-01-29 08:00] VITALS: RESP 16; O2SAT 99
--- NOTE | 2023-01-29 11:00 | NUR ---
I have reviewed and agree with interventions, assessments, and documentation by Homa Aleman LVN.
[2023-01-29] MEDS ORDERED: PANT40TA54 PO (11:21)
--- NOTE | 2023-01-29 12:20 | NUR ---
Patient discharged home with father via POV. All personal belongings sent with. PIV discontinued, tip in tact. Questions answered, alert and appropriate at the time of discharge.
== END 2023-01-29 12:20 | disposition home or self-care (01) | DRG 988 ==
LOC: ER 08:17 → ED HOLD 11:30 → EDBEDREQ 17:44 → ORTHO 4S 19:39
PROVIDERS: ADMIT Internal Medicine; ATTEND Internal Medicine
PROC: 30233N1 Transfusion of Nonautologous Red Blood Cells into Peripheral Vein, Percutaneous Approach (ICD-10-PCS; 2023-01-22)
PROC: 0DB98ZX Excision of Duodenum, Via Natural or Artificial Opening Endoscopic, Diagnostic (ICD-10-PCS; 2023-01-23)
PROC: 0DB78ZX Excision of Stomach, Pylorus, Via Natural or Artificial Opening Endoscopic, Diagnostic (ICD-10-PCS; 2023-01-23)
PROC: 0DB48ZX Excision of Esophagogastric Junction, Via Natural or Artificial Opening Endoscopic, Diagnostic (ICD-10-PCS; 2023-01-23)
PROC: BW251ZZ Computerized Tomography (CT Scan) of Chest, Abdomen and Pelvis using Low Osmolar Contrast (ICD-10-PCS; 2023-01-23)
PROC: 0DJD8ZZ Inspection of Lower Intestinal Tract, Via Natural or Artificial Opening Endoscopic (ICD-10-PCS; 2023-01-24)
PROC: 8E0W4CZ Robotic Assisted Procedure of Trunk Region, Percutaneous Endoscopic Approach (ICD-10-PCS; 2023-01-26)
PROC: 0WBC4ZZ Excision of Mediastinum, Percutaneous Endoscopic Approach (ICD-10-PCS; principal; 2023-01-26 12:02)
DX: D50.9 Iron deficiency anemia, unspecified (principal); E46 Unspecified protein-calorie malnutrition; D70.9 Neutropenia, unspecified; R16.2 Hepatomegaly with splenomegaly, not elsewhere classified; R22.2 Localized swelling, mass and lump, trunk; K20.90 Esophagitis, unspecified without bleeding; K44.9 Diaphragmatic hernia without obstruction or gangrene; K76.9 Liver disease, unspecified; R50.9 Fever, unspecified; E87.6 Hypokalemia; Z88.0 Allergy status to penicillin; Z88.2 Allergy status to sulfonamides; Z68.20 Body mass index [BMI] 20.0-20.9, adult
CPT/HCPCS: 43239; 45378; 99285; Z7506; Z7508; 36415; 36430; 71045; 71046; 71260; 74177; 76700; 80053; 80305; 81003; 82150; 82272; 82607; 82948; 82977; 83540; 83550; 83605; 83615; 83690; 83735; 84132; 84145; 85007; 85025; 85027; 85045; 85610; 85651; 86663; 86664; 86665; 86703; 86885; 86900; 86901; 86920; 86945; 87040; 87081; 94760; 97161; 97530; 99152; 99153; A4615; A4618; A4620; A6258; A6449; A7000; A7048; C9113; C9290; G0378; J0131; J0690; J1100; J1442; J1885; J2175; J2250; J2405; J2704; J3010; J3490; J7030; J7040; J7120; P9016; Q9967